=== PATIENT | female | born 1945 | race Caucasian/White ===

== ENCOUNTER 2023-04-09 14:30 | Outpatient (RCR) | payer MEDICARE, OTHER, SELFPAY | END 2023-05-09 14:48 | disposition home or self-care (01) | PROVIDERS: PCP Family Medicine; Visit Provider Family Medicine | DX: M54.50 Low back pain, unspecified (principal); M79.605 Pain in left leg; R53.1 Weakness; Z51.89 Encounter for other specified aftercare | CPT/HCPCS: 97110; 97140; 97162 ==

== ENCOUNTER 2023-04-23 09:27 | Outpatient (CLI) | payer MEDICARE, OTHER, SELFPAY | END 2023-04-23 09:28 | disposition home or self-care (01) | LOC: INJ CL 09:28 | PROVIDERS: PCP Family Medicine; Visit Provider Family Medicine | DX: M54.16 Radiculopathy, lumbar region (principal); M51.36 Other intervertebral disc degeneration, lumbar region | CPT/HCPCS: 64483; J1100; Q9966 ==

== ENCOUNTER 2024-01-20 07:16 | Outpatient (CLI) | payer MEDICARE, OTHER, SELFPAY ==
--- NOTE | 2024-01-20 08:38 | W.ANESCHARGE ---
Anesthesia Charges Start Date/Time Anesthesia Start Date: 01/20/24 Anesthesia Start Time: 08:03 Stop Date/Time Anesthesia Stop Date: 01/20/24 Anesthesia Stop Time: 08:34 Summary Extremes of Age - Over 70 or under 1: DIRECTOR OF [employer]
--- NOTE | 2024-01-20 10:19 | W.ANESCHARGE ---
Anesthesia Charges Start Date/Time Anesthesia Start Date: 01/20/24 Anesthesia Start Time: 08:03 Stop Date/Time Anesthesia Stop Date: 01/20/24 Anesthesia Stop Time: 08:34 Summary Extremes of Age - Over 70 or under 1: MDA
== END 2024-01-20 07:17 | disposition home or self-care (01) ==
LOC: OP CLINIC 07:18
PROVIDERS: PCP Family Medicine; Visit Provider Internal Medicine Gastroenterology
DX: Z12.11 Encounter for screening for malignant neoplasm of colon (principal); K63.5 Polyp of colon; K64.8 Other hemorrhoids; K57.30 Diverticulosis of large intestine without perforation or abscess without bleeding; Z86.010 Personal history of colon polyps
CPT/HCPCS: 45380; 45385; 811; 88305; 99100; J2704

== ENCOUNTER 2024-08-22 14:20 | Outpatient (CLI) | payer MEDICARE, OTHER, SELFPAY | END 2024-08-22 14:21 | disposition home or self-care (01) | LOC: AMB 08-24 04:27 | PROVIDERS: PCP Family Medicine; Visit Provider Internal Medicine | DX: R07.89 Other chest pain (principal) | CPT/HCPCS: A0425; A0427 ==

== ENCOUNTER 2024-08-22 14:38 | Emergency (ER) | payer MEDICARE, OTHER, SELFPAY ==
[2024-08-22 14:39] VITALS: BP 177/91; PULSE 71; RESP 14; TEMP 36.2; O2SAT 99; BMI 28.8
[2024-08-22 14:48] VITALS: BP 167/94; PULSE 69; RESP 14; O2SAT 97
--- NOTE | 2024-08-22 14:48 | ED_ITS ---
HPI - General Adult General Chief complaint: Arrhythmia/Palpitations Stated complaint: Stemi Time Seen by Provider: 08/22/24 14:39 History of Present Illness HPI narrative: This 78-year-old female is sent here from urgent care because she had severe jaw pain that started about an hour and half ago. She had some mild chest discomfort and was diaphoretic. This occurred while she was observing a dance competition. She was not doing any strenuous activity at the time and does not report any chest symptoms prior to this. An EKG was done at urgent care and it did show ST elevation so she was sent here. EKG on arrival here does show acute GA with ST elevation in the inferior and anterolateral leads. The patient arrives with normal vital signs. She did receive 4 baby aspirin prior to arrival here. Related Data Home Medications ?Medication ?Instructions ?Recorded ?Confirmed albuterol sulfate 90 mcg/actuation 1 - 2 puff inhalation Q4H PRN 02/01/23 01/18/24 aerosol inhaler amlodipine 10 mg tablet 10 mg PO DAILY 02/01/23 01/18/24 doxazosin 1 mg tablet 2 mg PO QPM blood pressure 02/01/23 01/18/24 fluticasone 250 mcg-salmeterol 50 1 ea inhalation Q12H 02/01/23 01/18/24 mcg/dose blistr powdr for inhalation (Advair Diskus) levothyroxine 75 mcg tablet 75 mcg PO DAILY 02/01/23 01/18/24 tizanidine 2 mg tablet 2 mg PO muscle relaxation 02/01/23 01/18/24 zafirlukast 20 mg tablet 20 mg PO BID 02/01/23 01/18/24 Previous Rx's ?Medication ?Instructions ?Recorded azithromycin 250 mg tablet See Rx Instructions PO .COMPLEX #6 01/18/24 tabs Allergies Allergy/AdvReac Type Severity Reaction Status Date / Time Sulfa (Sulfonamide Allergy Intermediate Rash Verified 01/18/24 09:49 Antibiotics) simvastatin (From Zocor) Allergy myalgia Verified 01/18/24 09:49 [id number] Reductase AdvReac Verified 01/18/24 09:49 Inhibitor ancef Allergy Intermediate Rash Uncoded 01/18/24 09:49 Bactrim Allergy Intermediate rash Uncoded 01/18/24 09:49 cefazolin Allergy Unknown Uncoded 01/18/24 09:49 sodium hyalurona Allergy Unknown Uncoded 01/18/24 09:49 Sulfasalazine Allergy Unknown Uncoded 01/18/24 09:49 Zetia Allergy Unknown Uncoded 01/18/24 09:49 Morphine AdvReac Intermediate Nausea Uncoded 01/18/24 09:49 Review of Systems Status of ROS: Reports: 10 or more systems reviewed and unremarkable except as noted in History and below Narrative: Constitutional: No fevers, no weight gain or loss. Eyes: No discharge. No vision changes. HENT: No congestion, no sore throat, no ear pain. Cardiovascular: No palpitations. Respiratory: No shortness of breath, no wheezes, no cough. Gastrointestinal: No abdominal pain, no vomiting, no diarrhea. Genitourinary: No dysuria, no hematuria. Musculoskeletal: Normal range of motion. Skin: No rashes, no pruritis. Neurological: No dizziness, weakness, sensory change, speech change. Endo/Heme/Allergies: No bruising or bleeding. No polydipsia. Pysch: no suicidality, no anxiety, no insomnia. All other systems reviewed and are negative. [facility] Medical History (Updated 08/22/24 @ 15:13 by Jose R Chou MD) Health care directive on file ?Z78.9 - Other specified health status (ICD-10) Hypertension ?I10 - Essential (primary) hypertension (ICD-10) Social History Smoking Status: Former smoker Do you use any of these nicotine containing products: None Second hand tobacco smoke exposure: No How often do you have a drink containing alcohol: never How often do you have six or more drinks on one occasion: Never AUDIT-C Alcohol total score: 0 Non-prescribed substance use: denies use service: No Exam Narrative: Exam Narrative: Constitutional: Well-developed, well-nourished, no acute distress. HEENT: Normocephalic, atraumatic. Neck: Normal range of motion. Nontender. Supple. Heart: Regular. No murmurs. Normal rate. Intact distal pulses. Lungs: Clear to auscultation. No wheezes, rhonchi, or rales. Abdomen: Normal bowel sounds. Nontender. No rebound tenderness. Genitalia: Deferred. Back: No midline tenderness. Normal range of motion. Extremities: Normal range of motion. No injury. Skin: Intact. No rash. Warm. No erythema or pallor. Neurologic: No altered sensation. No weakness. Alert and oriented. Psychiatric: No suicidality. No anxiety or depression. No insomnia. Nursing notes and vitals signs are reviewed. Const: Vital Signs, click to edit/add: Vital Signs - 24 hr 08/22/24 14:39 Temperature 97.2 F L Pulse Rate [Pulse Oximeter] 71 Respiratory Rate 14 Blood Pressure [Le ft Upper Arm] 177/91 H Pulse Oximetry 99 Oxygen Delivery Me thod Room Air Course Vital Signs Vital signs: Initial Vital Signs Temperature 97.2 F L 08/22/24 14:39 Temperature Source Temporal Artery Scan 08/22/24 14:39 Pulse Rate 71 08/22/24 14:39 Pulse Rhythm Regular 08/22/24 14:39 Respiratory Rate 14 08/22/24 14:39 Blood Pressure 177/91 H 08/22/24 14:39 Blood Pressure Mean 119 H 08/22/24 14:39 Blood Pressure Position Supine 08/22/24 14:39 Pulse Oximetry 99 08/22/24 14:39 Oxygen Delivery Method Room Air 08/22/24 14:39 Vital Signs Temperature 97.2 F L 08/22/24 14:39 Pulse Rate 71 08/22/24 14:39 Respiratory Rate 14 08/22/24 14:39 Blood Pressure 177/91 H 08/22/24 14:39 Pulse Oximetry 99 08/22/24 14:39 Oxygen Delivery Method Room Air 08/22/24 14:39 Temperature 97.2 F L 08/22/24 14:39 Pulse Rate 71 08/22/24 14:39 Respiratory Rate 14 08/22/24 14:39 Blood Pressure 177/91 H 08/22/24 14:39 Pulse Oximetry 99 08/22/24 14:39 Oxygen Delivery Method Room Air 08/22/24 14:39 Medications Administered Medications: Generic Name Dose Route Start Last Admin Trade Name Freq PRN Reason Stop Dose Admin Heparin Sodium/Dextrose 25,000 unit in 500 mls @ 0 mls/hr 08/22/24 15:00 08/22/24 14:51 Heparin IV 900 unit/hr .Q0M ADDIE 18 mls/hr Administration Protocol Per Protocol Discontinued Medications Generic Name Dose Route Start Last Admin Trade Name Russell PRN Reason Stop Dose Admin Heparin Sodium (Porcine) 4,000 unit 08/22/24 14:46 08/22/24 14:51 Heparin 5,000 Unit/0.5 Ml Inj IVP 08/22/24 14:47 4,000 unit ONCE ONE Administration Medical Decision Making MDM Narrative Medical decision making narrative: This patient comes in with severe jaw pain and some chest pain with diaphoresis and evidence of STEMI with ST elevation in the inferior and anterior lateral leads on EKG. The patient is continuing to have pain but has reassuring vital signs. She received 4 baby aspirin prior to arrival. IV was established here where she received heparin drip per [facility] protocol, ticagrelor 180 mg orally, and a nitroglycerin drip titrated for pain relief and keep blood pressure above 100 systolic. I did speak with the division director on-call at [facility], Dr. Cobos, at approximately 3:00 pm. 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 Lab Data Labs: Lab Results 08/22/24 Range/Units 14:45 WBC Cancelled RBC Cancelled Hgb Cancelled Hct Cancelled MCV Cancelled MCH Cancelled MCHC Cancelled Plt Count Cancelled ECG Data Attestation: I personally reviewed and interpreted this ECG as follows: Interpretation: Normal sinus rhythm, rate is [address]-elevation in the inferior and anterior lateral leads typical of acute GA. Discharge Plan Discharge Clinical Impression: ST elevation (STEMI) myocardial infarction Patient Disposition: Xfer [facility] Condition: Unchanged Prescriptions: No Action azithromycin 250 mg tablet See Rx Instructions PO .COMPLEX Qty: 6 0RF Rx Instructions: For 250 mg dose pack: take 500 mg today (day 1), then 250 mg for 4 days (days 2-5) PO fluticasone propion-salmeterol [Advair Diskus] 250-50 mcg/dose blister with device 1 ea INHALATION Q12H tizanidine 2 mg tablet 2 mg PO doxazosin 1 mg tablet 2 mg PO QPM levothyroxine 75 mcg tablet 75 mcg PO DAILY amlodipine 10 mg tablet 10 mg PO DAILY zafirlukast 20 mg tablet 20 mg PO BID albuterol sulfate 90 mcg/actuation HFA aerosol inhaler 1 - 2 puff INHALATION Q4H PRN Follow Up/Referrals: Juan R Arthur MD [Primary Care Provider] - Stand Alone Forms: [employer] Info Instructions
[2024-08-22] MEDS: HEPARIN 25,000 UNIT/500 ML BAG 18 UNIT IV (14:51)
[2024-08-22] MEDS: HEPARIN 5,000 UNIT/0.5 ML INJ 4000 UNIT IVP (14:51)
[2024-08-22 14:52] VITALS: BP 114/78; PULSE 72; RESP 16; O2SAT 99
[2024-08-22] MEDS: CLOPIDOGREL 300 MG TABLET 600 MG PO (15:01)
[2024-08-22 15:02] VITALS: BP 158/83; PULSE 73; RESP 14; O2SAT 97
[2024-08-22 15:03] LABS: Basophils Absolute Auto 0.04 K/uL (0.00-0.30); Basophils Percent Auto 0.4 % (0.0-3.0); Eosinophils Absolute Auto 0.16 K/uL (0.00-0.50); Eosinophils Percent Auto 1.5 % (0.0-7.0); Hematocrit 45.7 % (33.0-51.0); Immature Granulocytes Abs Auto 0.01 K/uL (0.00-0.30); Immature Granulocytes Pct Auto 0.1 %; Lymphocytes Absolute Auto 2.34 K/uL (0.90-2.90); Lymphocytes Percent Auto 22.6 % (20-44); Mean Corpuscular HGB Conc 33 gm/dL (32-36); Mean Corpuscular Hemoglobin 30 pg (26-34); Mean Corpuscular Volume 91 fL (80-100); Monocytes Percent Auto 8.6 % (0.0-11.0); Neutrophils Absolute Auto 6.91 K/uL (1.7-7.0); Neutrophils Percent Auto 66.8 % (42.0-72.0); Platelet Count* 316 K/uL (140-440); RDW Coefficient of Variation % 13.4 % (11.5-15.5); Red Blood Count 5.01 m/uL (4.00-5.20); White Blood Count* 10.35 K/uL (4.50-11.00)
[2024-08-22] MEDS: NITROGLYCERIN/DEXTROSE 25,000 MCG/250 ML BOTTLE 3 MCG IVPB (15:06)
[2024-08-22 15:10] LABS: Chloride* 104 mmol/L (96-114); Sodium* 138 mmol/L (135-149)
[2024-08-22 15:13] LABS: Anion Gap 10 mEq/L (7-15); Blood Urea Nitrogen* 23 mg/dL (7-30); Carbon Dioxide* 24 mmol/L (20-32); Creatinine* 0.7 mg/dL (0.5-1.5); Est. Creatinine Clearance* 38.75; Estimated Glomerular Filt Rate 87 ml/min
[2024-08-22 15:14] LABS: Calcium* 10.9 mg/dL (8.4-10.6); Glucose* 115 mg/dL (60-115)
[2024-08-22 15:29] LABS: INR 0.98 (0.91-1.10); Partial Thromboplastin Time* 31 Seconds (23-33); Prothrombin Time 13.5 Seconds
[2024-08-22 15:52] LABS: Slide Review Reflex No
== END 2024-08-22 15:10 | disposition short-term general hospital (02) ==
PROVIDERS: Emergency Provider Emergency Medicine Emergency Medical Services; PCP Family Medicine
DX: I21.3 ST elevation (STEMI) myocardial infarction of unspecified site (principal)
CPT/HCPCS: 36415; 80048; 84484; 85025; 85027; 85610; 85730; 93005; 99284; 99285; 99291; A9270; J1644

== ENCOUNTER 2024-08-22 15:07 | Outpatient (CLI) | payer MEDICARE, OTHER, SELFPAY | END 2024-08-22 15:08 | disposition home or self-care (01) | LOC: AMB 08-24 04:32 | PROVIDERS: PCP Family Medicine; Visit Provider Internal Medicine | DX: I21.4 Non-ST elevation (NSTEMI) myocardial infarction (principal) | CPT/HCPCS: A0425; A0434 ==